=== PATIENT | female | born 1955 | race Caucasian/White ===

== ENCOUNTER 2022-06-13 07:13 | Emergency (ER) | payer BC, OTHER ==
[~2022-06-13] VITALS: Ht 157.5 cm; Wt 72.6 kg
[2022-06-13 07:18] VITALS: BP_SYST 158
--- NOTE | 2022-06-13 07:25 | NUR ---
Patient to ER bed 7 to gown for evaluation. Side rails up. Report given to Claudia KELLEY.
--- NOTE | 2022-06-13 07:30 | NUR ---
ER at bedside examining patient.
--- NOTE | 2022-06-13 07:40 | NUR ---
Pt bib self from home. CC dypnea, sob, cough, body aches. pt is anxious aaox3, pt states symptoms present in past 48 hours. pt states husbanc is covid positive.
[2022-06-13] MEDS ORDERED: ALBUTEROL SULFATE 0.083% 2.5 MG/3 ML VIAL.NEB INH ONE (07:45)
[2022-06-13] MEDS ORDERED: predniSONE 20 MG TABLET PO ONE (08:00)
[2022-06-13] MEDS ORDERED: ACETAMINOPHEN 500 MG TABLET PO ONE (08:30)
[2022-06-13] MEDS ORDERED: BENZ100C92 PO (08:31)
[2022-06-13] MEDS ORDERED: MED4 PO (08:31)
[2022-06-13] MEDS ORDERED: ALBMDI INH (08:31)
--- NOTE | 2022-06-13 08:38 | NUR ---
Patient given written and verbal discharge instructions and verbalizes understanding. ER MD discussed with patient the results and treatment provided. Patient in stable condition. ID arm band removed. Rx of ALBUTEROL AND METHYLPREDNISOLONE given. Patient educated on pain management and to follow up with PMD. Opportunity for questions provided and answered. Medication side effect fact sheet provided.
[2022-06-13 08:59] VITALS: BP_SYST 148
--- NOTE | 2022-06-13 09:09 | NUR ---
Note sudharafael in EDM - 06/13/22 at 0943 by MEGGANPR Pt bib self from home. CC dypnea, sob, cough, body aches. pt is anxious aaox3, pt states symptoms present in past 48 hours. pt states husbanc is covid positive.
[2022-06-13] MEDS ORDERED: OSEL75CA PO (14:16)
--- NOTE | 2022-06-13 14:30 | NUR ---
PT INFORMED OF INFLUENZA A POSITIVE VIA TELEPHONE. CONTACTED ER TO REQUEST ANTIVIRAL MEDICATION. MD GABRIEL SENT RX.
== END 2022-06-13 08:59 | disposition home or self-care (01) ==
LOC: SED 07:13
DX: B34.9 Viral infection, unspecified (principal); R05.9 Cough, unspecified; R06.02 Shortness of breath; R50.9 Fever, unspecified; Z79.899 Other long term (current) drug therapy; Z20.822 Contact with and (suspected) exposure to COVID-19
CPT/HCPCS: 36415; 71045; 94640; 99284; 87804 ×2; 87426; J7512; J7613

== ENCOUNTER 2022-06-15 16:38 | Emergency (ER) | payer OTHER ==
[~2022-06-15] VITALS: Ht 162.6 cm; Wt 73.5 kg
[~2022-06-15 16:38] MED LIST: ALBMDI INH; BENZ100C92 PO; MED4 PO; OSEL75CA PO
[2022-06-15 17:00] VITALS: BP_SYST 150
--- NOTE | 2022-06-15 17:05 | NUR ---
BROUGHT INTO OUTSIDE TENT AND TRIAGED. WILL ASSUME CARE
--- NOTE | 2022-06-15 18:00 | NUR ---
PT bib self from home. CC flu like symptoms, emotionally distressed, cough with green production. Pt lungs wheezing.
[2022-06-15] MEDS ORDERED: ALBMDI INH (19:09)
[2022-06-15] MEDS ORDERED: PSEU120T57 PO (19:09)
[2022-06-15] MEDS ORDERED: IBUP-1969 PO (19:09)
[2022-06-15] MEDS ORDERED: GUAI5SYR PO (19:09)
[2022-06-15] MEDS ORDERED: NIRM1TAB PO ×2 (19:11)
--- NOTE | 2022-06-15 20:00 | NUR ---
Pt brought into room 5 report given to JOE Rivera.
--- NOTE | 2022-06-15 20:15 | NUR ---
Dr. Yi called RT to provide breathing tx to pt.
[2022-06-15] MEDS: IPRATROPIUM/ALBUTEROL SULFATE 3 ML AMPUL.NEB (DUONEB) INH ONE (20:38)
--- NOTE | 2022-06-15 21:17 | NUR ---
Looked for pt in room but not in her room. Looked in all ER bathrooms but pt is not in any bathroom. Went outside to lobby and pt not there either. Pt is not in parking lot. ER physician notified.
--- NOTE | 2022-06-15 21:28 | NUR ---
Patient given written and verbal discharge instructions and verbalizes understanding. ER MD discussed with patient the results and treatment provided. Patient in stable condition. ID arm band removed. Patient educated on pain management and to follow up with PMD. Pain Scale 0/10. Opportunity for questions provided and answered. Medication side effect fact sheet provided.
== END 2022-06-15 21:29 | disposition home or self-care (01) ==
LOC: SED 16:38
DX: U07.1 COVID-19 (principal); J10.1 Influenza due to other identified influenza virus with other respiratory manifestations; R05.9 Cough, unspecified; R50.9 Fever, unspecified; R11.2 Nausea with vomiting, unspecified; Z79.899 Other long term (current) drug therapy
CPT/HCPCS: 36415; 94640; 99283